=== PATIENT | male | born 1965 | race Caucasian/White ===

== ENCOUNTER → 2024-10-07 14:44 | Outpatient (REF) | payer BC, SELFPAY | LOC: HWRCS 14:44 | PROVIDERS: ATTENDING PHYSICIAN Nuclear Medicine Nuclear Cardiology; FAMILY PHYSICIAN Family Medicine | DX: R06.02 Shortness of breath (principal); E78.2 Mixed hyperlipidemia | CPT/HCPCS: 93306 ==